=== PATIENT | female | born 1940 | race Caucasian/White ===

== ENCOUNTER 2018-04-03 07:52 | Day surgery (SDC) | payer MEDICARE, OTHER, SELFPAY ==
[2018-04-03] MEDS: PROPARACAINE 0.5% OPHTH SOL 2 DROPS EYE-OP (08:59)
[2018-04-03 09:03] VITALS: BP 171/67; PULSE 55; RESP 15; TEMP 36; O2SAT 99; BMI 22.4
[2018-04-03] MEDS: CATARACT EYE COMPOUND (10 DROPS/SYRINGE) 3 DROPS EYE-OP (09:14)
[2018-04-03 09:19] VITALS: BMI 22.4
--- NOTE | 2018-04-03 09:42 | P.OP.PRE_ITS ---
Pre-operative Note Interval Note Changes: No
--- NOTE | 2018-04-03 09:42 | PM.PREOP ---
Pre-operative Note Interval Note Changes: No
--- NOTE | 2018-04-03 09:44 | P.OP_ITS ---
Operative Date/Time/Diagnoses Pre-op diagnosis: Nuclear cataract right eye Post-op diagnosis: same Procedure & Clinicians Procedure: Cataract Surgery Same procedure as scheduled: Yes Surgeon: Romulo Saucedo Anesthesia Type: MAC +/- and Sedation Operative Notes Procedure in detail: Patient brought to the operating suite. Tetracaine drops placed in the right eye. Patient was prepped and draped in sterile manner. Wire lid speculum was placed in the eye. Betadine drops were placed on the eye. This was irrigated. Lidocaine jelly was placed on the eye. A paracentesis port was created with a side-port blade. 0.1 mL 1% preservative free lidocaine was injected into the anterior chamber. The anterior chamber was deepened with viscoelastic. 2.6 mm keratome was used to create a temporal clear corneal incision. Cystotome and Utrata forceps were used to create continuous tear capsulorrhexis. Balanced salt solution was used to hydro dissect the nucleus. The phacoemulsification handpiece was inserted and the nucleus was removed using the stop and chop technique. The irrigation aspiration handpiece was inserted and the remaining cortex was removed. Anterior chamber was deepened with viscoelastic. An Escobar ZCB00 intraocular lens with a power of 22.0 was injected into the capsular bag. Irrigation aspiration handpiece was inserted and the remaining viscoelastic was removed. Incision was hydrated with balanced salt solution and found to be leak free with pressure with Weck- Rhona sponges. 0.1 mL Vigamox injected anterior chamber. 0.3 mL Kenalog 10 mg was injected subconjunctivally. Lid speculum was removed. The patient left the operating room in excellent condition. Complications: none Condition: stable Disposition: same day surgery
[2018-04-03] MEDS: PHENYLEPHRINE/LIDOCAINE VIAL (OR) 0.2 ML EYE-OP (10:02)
[2018-04-03] MEDS: LIDOCAINE JELLY 2% 5 ML 1 APPLIC TOP (10:03)
[2018-04-03] MEDS: CHONDROIDTIN/SOD HYALURONATE 1.05 ML SYRINGE INTRAOCULA (10:03)
[2018-04-03] MEDS: TRIAMCINOLONE 50 MG/5 ML VIAL INJ (10:03)
[2018-04-03] MEDS: MOXIFLOXACIN OPHTH DROPS 3 ML BOTTLE 2 DROPS INJ (10:03)
[2018-04-03] MEDS: BALANCED SALT IRRIG SOLN NO.2 500 ML, EPINEPHrine 1 MG IRR (10:04)
[2018-04-03] MEDS: TETRACAINE 0.5% OPHTH DROPS 15 ML 2 DROPS EYE-RIGHT (10:04)
[2018-04-03 10:14] VITALS: BP 144/56; PULSE 56; RESP 15; TEMP 36.3; O2SAT 96
== END 2018-04-03 10:29 | disposition home or self-care (01) ==
LOC: OR 07:54
PROVIDERS: PCP Physician Assistant; Visit Provider Ophthalmology
DX: H25.11 Age-related nuclear cataract, right eye (principal); I10 Essential (primary) hypertension; K50.90 Crohn's disease, unspecified, without complications; N19 Unspecified kidney failure
CPT/HCPCS: J0171; J2250; J3010; J3301

== ENCOUNTER 2018-04-17 10:22 | Day surgery (SDC) | payer MEDICARE, OTHER, SELFPAY ==
[2018-04-17 10:39] VITALS: BP 152/72; PULSE 61; RESP 16; TEMP 36.4; O2SAT 100; BMI 23.0
[2018-04-17] MEDS: PROPARACAINE 0.5% OPHTH SOL 2 DROPS EYE-OP (10:52)
[2018-04-17] MEDS: CATARACT EYE COMPOUND (10 DROPS/SYRINGE) 3 DROPS EYE-OP (10:52)
--- NOTE | 2018-04-17 11:42 | PM.PREOP ---
Pre-operative Note Interval Note Changes: No
--- NOTE | 2018-04-17 11:43 | P.OP.PRE_ITS ---
Pre-operative Note Interval Note Changes: No
--- NOTE | 2018-04-17 11:43 | P.OP_ITS ---
Operative Date/Time/Diagnoses Pre-op diagnosis: Nuclear Cataract Left eye Post-op diagnosis: same Procedure & Clinicians Surgeon: Romulo Saucedo Anesthesia Type: MAC +/- and Sedation Operative Notes Procedure in detail: Patient brought to the operating suite. Tetracaine drops placed in the left eye. Patient was prepped and draped in sterile manner. Wire lid speculum was placed in the eye. Betadine drops were placed on the eye. This was irrigated. Lidocaine jelly was placed on the eye. A paracentesis port was created with a side-port blade. 0.1 mL 1% preservative free lidocaine was injected into the anterior chamber. The anterior chamber was deepened with viscoelastic. 2.6 mm keratome was used to create a temporal clear corneal incision. Cystotome and Utrata forceps were used to create continuous tear capsulorrhexis. Balanced salt solution was used to hydro dissect the nucleus. The phacoemulsification handpiece was inserted and the nucleus was removed using the stop and chop technique. The irrigation aspiration handpiece was inserted and the remaining cortex was removed. Anterior chamber was deepened with viscoelastic. An Escobar ZCB00 intraocular lens with a power of 22.0 was injected into the capsular bag. Irrigation aspiration handpiece was inserted and the remaining viscoelastic was removed. Incision was hydrated with balanced salt solution and found to be leak free with pressure with Weck- Rhona sponges. 0.1 mL Vigamox injected anterior chamber. 0.3 mL Kenalog 10 mg was injected subconjunctivally. Lid speculum was removed. The patient left the operating room in excellent condition. Complications: none Condition: stable Disposition: same day surgery
--- NOTE | 2018-04-17 11:54 | SUR.OPER ---
Supine on eye stretcher, head on extension cradle secured with tape. Arms tucked at sides with blanket. Pillow under knees.
[2018-04-17] MEDS: CHONDROIDTIN/SOD HYALURONATE 1.05 ML SYRINGE INTRAOCULA (11:55)
[2018-04-17] MEDS: PHENYLEPHRINE/LIDOCAINE VIAL (OR) 0.2 ML EYE-OP (11:56)
[2018-04-17] MEDS: MOXIFLOXACIN OPHTH DROPS 3 ML BOTTLE 2 DROPS INJ (11:56)
[2018-04-17] MEDS: LIDOCAINE JELLY 2% 5 ML 1 APPLIC TOP (11:56)
[2018-04-17] MEDS: BALANCED SALT IRRIG SOLN NO.2 500 ML, EPINEPHrine 1 MG IRR (11:57)
[2018-04-17] MEDS: TETRACAINE 0.5% OPHTH DROPS 15 ML 2 DROPS EYE-LEFT (11:57)
[2018-04-17] MEDS: TRIAMCINOLONE 50 MG/5 ML VIAL INJ (11:57)
[2018-04-17 12:10] VITALS: BP 119/59; PULSE 52; RESP 16; TEMP 36.2; O2SAT 98
[2018-04-17 12:23] VITALS: BP 127/60; PULSE 53; RESP 16; TEMP 36.7; O2SAT 99
== END 2018-04-17 12:25 | disposition home or self-care (01) ==
PROVIDERS: PCP Physician Assistant; Visit Provider Ophthalmology
PROC: (CPT 66984; principal; 2018-04-17 12:45)
DX: H25.12 Age-related nuclear cataract, left eye (principal); I10 Essential (primary) hypertension; N19 Unspecified kidney failure
CPT/HCPCS: 66984; J0171; J2250; J3010; J3301

== ENCOUNTER 2018-09-02 18:55 | Emergency (ER) | payer MEDICARE, OTHER, SELFPAY ==
[2018-09-02] VITALS (13 sets, daily range): BP systolic 96–207; BP diastolic 37–97; PULSE 90–131; RESP 16–25; TEMP 38.5; O2SAT 87–100; BMI 23.0
--- NOTE | 2018-09-02 19:30 | DI.RAD.S_ITS ---
PROCEDURE: XR CHEST 1V INDICATIONS: hypoxic short of breath TECHNIQUE: One view of the chest was acquired. COMPARISON: None. FINDINGS: Surgical changes and devices: None. Lungs and pleura: Lungs are clear. No pleural effusions or pneumothorax. Mediastinum: Mediastinal contours appear normal. Heart size is normal. Bones and chest wall: No suspicious bony lesions. Overlying soft tissues appear unremarkable. IMPRESSION: No acute process. Dictated by: Ramiro Porter M.D. on 09/02/2018 at 19:59 Approved by: Ramiro Porter M.D. on 09/02/2018 at 20:00
[2018-09-02] MEDS: ALBUTEROL 2.5 MG/3 ML NEB (ADULT) INH ×4 (19:53→22:50)
--- NOTE | 2018-09-02 19:57 | ED.URI ---
HPI - URI/Sore Throat General Chief Complaint: Upper Respiratory Symptoms Stated Complaint: cold,cough,trouble breathing today Time Seen by Provider: 09/02/18 19:30 Source: patient and family Mode of arrival: wheelchair History of Present Illness HPI Narrative: Patient is an 78-year-old female presenting with obvious respiratory distress. She says she has been feeling ill the the last 6 days. She has had body aches and chills. She has a productive cough but does not get anything up. She is short of breath with minimal exertion. On room air apparently oxygenating 84% with good waveform. No history of COPD. MD Complaint: fever, cough and sore throat Onset (ago): day(s) (6) Duration: constant Related Data Home Medications Medication Instructions Recorded Confirmed Poison Lyndsay (#RHUS TOX) gtt SUBLINGUAL PRN #0 09/28/12 05/24/18 Restore 5 ml PO QAC 01/04/18 05/24/18 [BUILD BONE] 4 cap PO QDAY #0 01/04/18 05/24/18 cholecalciferol (vitamin D3) 2,000 2,000 unit PO DAILY 05/24/18 05/24/18 unit capsule ketorolac 0.5 % eye drops 1 drop EYE-RIGHT QID ml 05/24/18 05/24/18 prednisolone acetate 1 % eye 1 drop EYE-RIGHT QID ml 05/24/18 05/24/18 drops,suspension Previous Rx's Medication Instructions Recorded losartan 50 mg tablet 50 mg PO QDAY #90 tab 05/14/18 atenolol 25 mg tablet 25 mg PO BID #180 tab 06/25/18 felodipine 10 mg PO QDAY #90 tab 07/02/18 Allergies Allergy/AdvReac Type Severity Reaction Status Date / Time Sulfa (Sulfonamide Allergy Mild RASH Verified 09/02/18 19:18 Antibiotics) terazosin AdvReac Intermediate DIZZY, Verified 09/02/18 19:18 PALPITATIONS RONALD Inhibitors AdvReac Mild COUGH Verified 09/02/18 19:18 amlodipine AdvReac Mild EDEMA Verified 09/02/18 19:18 hydrochlorothiazide AdvReac Mild N/V/D, Verified 09/02/18 19:18 PHOTO DERM NSAIDS (Non-Steroidal AdvReac Mild N/V Verified 09/02/18 19:18 Anti-Inflamma risedronate sodium AdvReac Mild EDEMA/TACHY Verified 09/02/18 19:18 Review of Systems Review of Systems ROS Unobtainable: All systems reviewed & are unremarkable except as noted in HPI and below Constitutional Reports body ache(s), Reports chills and Reports fever(s) Cardiovascular Denies chest pain, Reports dyspnea and Reports dyspnea on exertion Respiratory Reports chest congestion, Reports pain with cough, Reports dyspnea and Reports dyspnea on exertion Gastrointestinal Gastrointestinal: Denies abdominal pain, Denies change in bowel habits, Denies diarrhea, Denies nausea and Denies vomiting Musculoskeletal Denies back pain, Denies muscle weakness, Denies numbness and Denies tingling Integumentary/Breasts Denies pruritus, Denies erythema, Denies rash and Denies wounds Neurologic Denies numbness and Denies tingling PFSH Medical History Crohns disease (Acute) Fibromyalgia (Acute) Hypertension (Acute) Social History household members: spouse Smoking Status: Never smoker second hand exposure: No alcohol intake: current (small amount of red wine, once and awhile) substance use type: does not use Social History household members: spouse Smoking Status: Never smoker second hand exposure: No alcohol intake: current (small amount of red wine, once and awhile) substance use type: does not use Exam Initial Vital Signs Initial Vital Signs: Vital Signs Temperature 101.3 F H 09/02/18 19:19 Pulse Rate 90 09/02/18 19:19 Blood Pressure 207/82 H 09/02/18 19:19 Pulse Oximetry 87 L 09/02/18 19:19 Gen.: Alert frail elderly female in obvious respiratory distress HEENT: Head is atraumatic, EOMI Neck: No JVD, supple Lungs: Coarse breath sounds throughout audible rales, tachypneic, unable to speak in full sentences Cardiac: Tachycardic regular no murmur Abdomen: Soft nontender nondistended Extremities: Moving all extremity's, peripheral pulses intact is no pedal edema Neurologic: A&O x3 no gross deficits Procedures Intubation Time out performed: Yes sedative: Etomidate Mg Given: 10 paralytic: Succinylcholine Mg Given: 75 Laryngoscope: other (glide scope) ET Tube Size: 7.5 ET Tube Uncuffed: Yes Tube Secured Depth (cm): 23 Tube Secured Location: teeth Tube Placement Confirmation: Visualized tube passing through cords, Equal breath sounds bilaterally, No breath sounds over epigastrium, Confirmation by capnometry and Chest Xray Patient Tolerated Procedure: Well Intubation Complications: none Course Orders Ordered: ED Orders 09/02/18 19:30 XR chest 1V Stat EKG-12 Lead Stat 09/02/18 19:45 Influenza A and B by PCR Rapid Stat 09/02/18 19:53 B Type Natriuretic Peptide Stat Complete Blood Count AUTO DIFF Stat Comprehensive Metabolic Panel Stat Lactate (Lactic Acid) Stat Procalcitonin Stat Troponin & CK Cardiac Panel Stat 09/02/18 20:55 Blood Culture Stat 09/02/18 21:43 XR chest 1V Stat 09/02/18 21:56 Arterial Blood Gas Stat 09/02/18 22:30 Sputum Culture Stat 09/02/18 22:37 MRSA PCR Stat Discontinued Medications Acetaminophen (Tylenol) 975 mg PO NOW ONE Stop: 09/02/18 19:31 Last Admin: 09/02/18 20:30 Dose: 975 mg Albuterol (Ventolin) 2.5 mg INH NOW PRN PRN Reason: Shortness Of Breath Or Wheezing Last Admin: 09/02/18 22:50 Dose: 2.5 mg Admin: 09/02/18 19:57 Dose: 2.5 mg Admin: 09/02/18 19:56 Dose: 2.5 mg Admin: 09/02/18 19:53 Dose: 2.5 mg Hydromorphone HCl (Dilaudid) 0.5 mg IV NOW ONE Stop: 09/02/18 22:03 Last Admin: 09/02/18 22:08 Dose: 0.5 mg Hydromorphone HCl (Dilaudid) 0.5 mg IV NOW ONE Stop: 09/02/18 23:45 Sodium Chloride (Normal Saline 0.9%) 1,551.3 mls @ 517.1 mls/hr 30 ml/kg infuse over 3 hr (1551.3 ml) IV NOW ONE Stop: 09/02/18 22:29 Last Infusion: 09/02/18 23:10 Dose: 1,000 mls/hr Admin: 09/02/18 20:32 Dose: 517.1 mls/hr Ceftriaxone Sodium/Dextrose (Rocephin) 1 gm in 50 mls @ 100 mls/hr IV NOW ONE Stop: 09/02/18 22:31 Azithromycin 500 mg/ Dextrose 250 mls @ 250 mls/hr IV NOW ONE Stop: 09/02/18 22:03 Piperacillin/Tazobactam/Dextrose (Zosyn) 3.375 gm in 50 mls @ 100 mls/hr IV NOW ONE Stop: 09/02/18 22:47 Last Infusion: 09/03/18 00:03 Dose: 100 mls/hr Admin: 09/02/18 23:08 Dose: 100 mls/hr Propofol (Propofol) 1,000 mg in 100 mls @ 6.205 mls/hr IV TITRATE DARIA; Protocol Last Titration: 09/02/18 23:33 Dose: 0 mcg/kg/min, 0 mls/hr Titration: 09/02/18 23:01 Dose: 32.23 mcg/kg/min, 10 mls/hr Titration: 09/02/18 22:20 Dose: 0 mcg/kg/min, 0 mls/hr Titration: 09/02/18 21:45 Dose: 64.46 mcg/kg/min, 20 mls/hr Admin: 09/02/18 21:45 Dose: 20 mcg/kg/min, 6.205 mls/hr Lorazepam (Ativan) 2 mg IV NOW ONE Stop: 09/02/18 22:59 Last Admin: 09/02/18 22:00 Dose: 2 mg Oseltamivir Phosphate (Tamiflu) 75 mg PO NOW ONE Stop: 09/02/18 20:23 Last Admin: 09/02/18 20:30 Dose: 75 mg Propofol (Diprivan) 40 mg IV NOW ONE Stop: 09/02/18 22:59 Last Admin: 09/02/18 21:50 Dose: 40 mg Reevaluation(s) Reevaluation #1: Patient re-evaluated after bronchodilators. She is still in moderate respiratory distress but oxygen levels have increased with 2 L of O2 she appears more comfortable Reevaluation #2: Patient ambulated do a bedside commode as afterwards she quickly decompensated. Becoming very tachypneic hypoxic and restless. At that time we were trying to get bedside ABG is however due to patient's decompensation we are unable to. Attempted to try patient on high-flow nasal cannula. Which did improve her oxygen however she continued to be tachypneic and restless. I discussed with patient need for intubation. She was agreeable family at bedside also agreeable and understood. Patient emergently intubated. Vital Signs - 8 hr 09/02/18 19:19 09/02/18 19:54 09/02/18 21:03 Temperature 101.3 F H Pulse Rate 90 95 H 120 H Respiratory Rate 25 H 22 Blood Pressure 207/82 H Blood Pressure [Left Arm] Blood Pressure [Right Arm] Pulse Oximetry 87 L 97 88 L 09/02/18 21:21 09/02/18 21:37 09/02/18 21:45 Temperature Pulse Rate 122 H 131 H 113 H Respiratory Rate 24 24 16 Blood Pressure Blood Pressure [Left Arm] 180/88 H 187/97 H 186/85 H Blood Pressure [Right Arm] Pulse Oximetry 95 96 100 09/02/18 22:10 09/02/18 22:30 09/02/18 23:00 Temperature Pulse Rate 102 H 94 H 90 Respiratory Rate 16 16 Blood Pressure Blood Pressure [Left Arm] 96/37 L 155/82 H Blood Pressure [Right Arm] 100/47 L Pulse Oximetry 98 09/02/18 23:05 09/02/18 23:10 09/02/18 23:40 Temperature Pulse Rate 91 H 92 H 87 Respiratory Rate 16 16 Blood Pressure Blood Pressure [Left Arm] 125/42 L 114/41 L 119/43 L Blood Pressure [Right Arm] Pulse Oximetry 99 MDM - URI/Sore Throat Lab Data Attestation: I reviewed the patient's lab results. Result diagrams: 09/02/18 19:53 09/02/18 19:53 Lab Results 09/02/18 09/02/18 09/02/18 Range/Units 19:45 19:53 19:53 WBC 4.9 (4.5-11.0) X10^3/uL RBC 4.10 (4.0-5.2) X10^6/uL Hgb 12.5 (12.0-16.0) g/dL Hct 37.1 (36-46) % MCV 90.5 (80-100) fL MCH 30.6 (26-34) PG MCHC 33.8 (30-36) % RDW 13.0 (11.6-14.8) % Plt Count 169 (150-400) X10^3/uL Neut % (Auto) 80.4 H (50-75) % Lymph % (Auto) 12.8 L (25-40) % [place] % (Auto) 6.4 (3-14) % Eos % (Auto) 0.1 L (2-4) % Baso % (Auto) 0.3 (0-2) % Neut # (Auto) 3900 (6743-1516) /uL Lymph # (Auto) 600 L (6704-3436) /uL [place] # (Auto) 300 (0-900) /uL Eos # (Auto) 0 (0-450) /uL Baso # (Auto) 0 (0-100) /uL ABG pH (7.35-7.45) ABG pCO2 (35-45) mmHg ABG pO2 (80-100) mmHg ABG HCO3 (22-26) mmol/L ABG Total CO2 (21-31) mmol/L ABG O2 Saturation (95-100) % ABG Base Excess (-2-2) mmol/L FiO2 Sodium 131 L (137-145) mmol/L Potassium 3.9 (3.4-5.1) mmol/L Chloride 93 L (98-107) mmol/L Carbon Dioxide 25 (22-32) mmol/L BUN 15 (7-17) mg/dL Creatinine 0.80 (0.52-1.04) mg/dL Estimated GFR > 60.0 (>60) mL/min BUN/Creatinine Ratio 18.8 (6-22) Glucose 120 H (80-110) mg/dL Lactate (0.7-2.1) mmol/L Calcium 9.2 (8.4-10.2) mg/dL Total Bilirubin 0.5 (0.2-1.3) mg/dL AST 54 H (14-36) IU/L ALT 44 (9-52) IU/L Alkaline Phosphatase 96 (38-126) U/L Total Creatine Kinase 115 (30-135) U/L CK-MB (CK-2) 1.98 (<2.37) ng/mL CK-MB (CK-2) Rel Index 1.7 (1.5-5.0) % Troponin I 0.018 (0.01-0.034) ng/mL B-Natriuretic Peptide 147 H (<100) Total Protein 7.9 (6.3-8.2) g/dL Albumin 4.5 (3.5-5.0) g/dL Globulin 3.4 (1.7-4.1) g/dL Albumin/Globulin Ratio 1.3 (1.0-2.8) Procalcitonin (<0.5) ng/mL Nasal Screen MRSA (PCR) (Negative) Influenza A & B (PCR) Positive, type a A (Negative) 09/02/18 09/02/18 09/02/18 Range/Units 19:53 19:53 21:56 WBC (4.5-11.0) X10^3/uL RBC (4.0-5.2) X10^6/uL Hgb (12.0-16.0) g/dL Hct (36-46) % MCV (80-100) fL MCH (26-34) PG MCHC (30-36) % RDW (11.6-14.8) % Plt Count (150-400) X10^3/uL Neut % (Auto) (50-75) % Lymph % (Auto) (25-40) % [place] % (Auto) (3-14) % Eos % (Auto) (2-4) % Baso % (Auto) (0-2) % Neut # (Auto) (0531-4098) /uL Lymph # (Auto) (6942-8803) /uL [place] # (Auto) (0-900) /uL Eos # (Auto) (0-450) /uL Baso # (Auto) (0-100) /uL ABG pH 7.26 L* (7.35-7.45) ABG pCO2 51.9 H (35-45) mmHg ABG pO2 99 (80-100) mmHg ABG HCO3 23 (22-26) mmol/L ABG Total CO2 25 (21-31) mmol/L ABG O2 Saturation 96 (95-100) % ABG Base Excess -4.0 L (-2-2) mmol/L FiO2 0.50 Sodium (137-145) mmol/L Potassium (3.4-5.1) mmol/L Chloride (98-107) mmol/L Carbon Dioxide (22-32) mmol/L BUN (7-17) mg/dL Creatinine (0.52-1.04) mg/dL Estimated GFR (>60) mL/min BUN/Creatinine Ratio (6-22) Glucose (80-110) mg/dL Lactate 1.0 (0.7-2.1) mmol/L Calcium (8.4-10.2) mg/dL Total Bilirubin (0.2-1.3) mg/dL AST (14-36) IU/L ALT (9-52) IU/L Alkaline Phosphatase (38-126) U/L Total Creatine Kinase (30-135) U/L CK-MB (CK-2) (<2.37) ng/mL CK-MB (CK-2) Rel Index (1.5-5.0) % Troponin I (0.01-0.034) ng/mL B-Natriuretic Peptide (<100) Total Protein (6.3-8.2) g/dL Albumin (3.5-5.0) g/dL Globulin (1.7-4.1) g/dL Albumin/Globulin Ratio (1.0-2.8) Procalcitonin < 0.05 (<0.5) ng/mL Nasal Screen MRSA (PCR) (Negative) Influenza A & B (PCR) (Negative) 09/02/18 Range/Units 22:37 WBC (4.5-11.0) X10^3/uL RBC (4.0-5.2) X10^6/uL Hgb (12.0-16.0) g/dL Hct (36-46) % MCV (80-100) fL MCH (26-34) PG MCHC (30-36) % RDW (11.6-14.8) % Plt Count (150-400) X10^3/uL Neut % (Auto) (50-75) % Lymph % (Auto) (25-40) % [place] % (Auto) (3-14) % Eos % (Auto) (2-4) % Baso % (Auto) (0-2) % Neut # (Auto) (8718-1445) /uL Lymph # (Auto) (0509-0869) /uL [place] # (Auto) (0-900) /uL Eos # (Auto) (0-450) /uL Baso # (Auto) (0-100) /uL ABG pH (7.35-7.45) ABG pCO2 (35-45) mmHg ABG pO2 (80-100) mmHg ABG HCO3 (22-26) mmol/L ABG Total CO2 (21-31) mmol/L ABG O2 Saturation (95-100) % ABG Base Excess (-2-2) mmol/L FiO2 Sodium (137-145) mmol/L Potassium (3.4-5.1) mmol/L Chloride (98-107) mmol/L Carbon Dioxide (22-32) mmol/L BUN (7-17) mg/dL Creatinine (0.52-1.04) mg/dL Estimated GFR (>60) mL/min BUN/Creatinine Ratio (6-22) Glucose (80-110) mg/dL Lactate (0.7-2.1) mmol/L Calcium (8.4-10.2) mg/dL Total Bilirubin (0.2-1.3) mg/dL AST (14-36) IU/L ALT (9-52) IU/L Alkaline Phosphatase (38-126) U/L Total Creatine Kinase (30-135) U/L CK-MB (CK-2) (<2.37) ng/mL CK-MB (CK-2) Rel Index (1.5-5.0) % Troponin I (0.01-0.034) ng/mL B-Natriuretic Peptide (<100) Total Protein (6.3-8.2) g/dL Albumin (3.5-5.0) g/dL Globulin (1.7-4.1) g/dL Albumin/Globulin Ratio (1.0-2.8) Procalcitonin (<0.5) ng/mL Nasal Screen MRSA (PCR) Negative for mrsa (Negative) Influenza A & B (PCR) (Negative) Urine Dip Bedside Urine Glucose Negative Bedside Urine Bilirubin - Negative Bedside Urine Ketone - Negative Urine Specific [place] 1.020 Bedside Urine Occult Blood +/- Bedside Urine pH 6.0 Bedside Urine Protein ++ 100 Bedside Urine Urobilinogen - Negative Bedside Urine Nitrite - Negative Bedside Urine Leukocytes - Negative Esterase Imaging Data Chest x-ray: Radiologist's impression: PROCEDURE: XR CHEST 1V INDICATIONS: hypoxic short of breath TECHNIQUE: One view of the chest was acquired. COMPARISON: None. FINDINGS: Surgical changes and devices: None. Lungs and pleura: Lungs are clear. No pleural effusions or pneumothorax. Mediastinum: Mediastinal contours appear normal. Heart size is normal. Bones and chest wall: No suspicious bony lesions. Overlying soft tissues appear unremarkable. IMPRESSION: No acute process. Dictated by: Ramiro Porter M.D. on 09/02/2018 at 19:59 chest xr #2: Radiologist's impression: PROCEDURE: XR CHEST 1V INDICATIONS: intubation TECHNIQUE: One view of the chest was acquired. COMPARISON: [facility], CR, XR CHEST 1V, 09/02/2018, 19:48. FINDINGS: Surgical changes and devices: ETT is present, tip of which is 35 mm above the lucrecia. Lungs and pleura: Mild patchy right basilar opacity. No pleural effusions or pneumothorax. Mediastinum: Mediastinal contours appear normal. Heart size is normal. Bones and chest wall: No suspicious bony lesions. Overlying soft tissues appear unremarkable. IMPRESSION: Right basilar pneumonia. Follow up plain films of the chest are recommended to ensure resolution, and to exclude underlying or central malignancy. Dictated by: Ramiro Porter M.D. on 09/02/2018 at 21:59 ECG Data Attestation: I personally reviewed and interpreted this ECG as follows: Interpretation: Sinus rhythm rate [address] depression lead [address] elevation MDM Narrative Medical decision making narrative: Dr. Ngueyn initially accepted patient. Patient decompensated requiring intubation. [facility] no longer has ICU beds. Patient will be transferred to [facility]. Dr. Garcia accepts. I spoke with the audiovisual lead technician who requested and nasal MRSA swab and vancomycin if needed. Also recommended Zosyn and azithromycin MRSA screen will be done at 11:45pm Transport here now. --11:25pm 12:10am MRSA screen is negative called and updated audiovisual lead technician Dr. Garcia. Critical Care Time Critical Care Time: Yes Total Critical Care Time: 60 Attestation: The high probability of a clinically significant, sudden or life threatening deterioration of the [cardiovascular] system(s) required my full and direct attention, intervention and personal management. The aggregate critical care time was [45] minutes. This time is in addition to time spent performing reported procedures but includes the following: [x] Data Review and interpretation [x] Patient assessment and monitoring of vital signs [x] Documentation [x] Medication orders and management Discharge Plan Departure Patient Disposition: [facility] Clinical Impression: Influenza A, Acute and chronic respiratory failure with hypoxia Discharge Date/Time: 09/03/18 00:10 Interventions: ED Discharge Assessment Last Done: 09/03/18 00:09 Prescriptions: No Action Restore 5 ml PO QAC RF: 0 [BUILD BONE] 4 cap PO QDAY Qty: 0 RF: 0 cholecalciferol (vitamin D3) 2,000 unit capsule 2,000 unit PO DAILY RF: 0 prednisolone acetate 1 % drops,suspension 1 drop EYE-RIGHT QID RF: 0 ketorolac 0.5 % drops 1 drop EYE-RIGHT QID RF: 0 Poison Lyndsay (#RHUS TOX) Sublingual PRN Qty: 0 RF: 0 losartan 50 mg tablet 50 mg PO QDAY Qty: 90 RF: 1 atenolol 25 mg tablet 25 mg PO BID Qty: 180 RF: 3 felodipine 10 mg tablet extended release 24 hr 10 mg PO QDAY Qty: 90 RF: 3 Referrals: Raquel Torres PA-C [Primary Care Provider] -
[2018-09-02 20:11] LABS: Add Manual Diff / Slide Review NO; Basophils Absolute Auto 0 /uL (0-100); Basophils Percent Auto 0.3 % (0-2); Eosinophils Absolute Auto 0 /uL (0-450); Eosinophils Percent Auto 0.1 % (2-4); Hematocrit 37.1 % (36-46); Hemoglobin 12.5 g/dL (12.0-16.0); Lymphocytes Absolute Auto 600 /uL (1100-4500); Lymphocytes Percent Auto 12.8 % (25-40); Mean Corpuscular HGB Conc 33.8 % (30-36); Mean Corpuscular Hemoglobin 30.6 PG (26-34); Mean Corpuscular Volume 90.5 fL (80-100); Monocytes Absolute Auto 300 /uL (0-900); Monocytes Percent Auto 6.4 % (3-14); Neutrophils Absolute Auto 3900 /uL (1500-7000); Neutrophils Percent Auto 80.4 % (50-75); Platelet Count 169 X10^3/uL (150-400); White Blood Cell Count 4.9 X10^3/uL (4.5-11.0)
[2018-09-02 20:17] LABS: Alanine Aminotransferase 44 IU/L (9-52); Albumin 4.5 g/dL (3.5-5.0); Albumin Globulin Ratio 1.3 (1.0-2.8); Alkaline Phosphatase 96 U/L (38-126); Aspartate Aminotransferase 54 IU/L (14-36); BUN Creatinine Ratio 18.8 (6-22); Bilirubin Total 0.5 mg/dL (0.2-1.3); Blood Urea Nitrogen 15 mg/dL (7-17); Calcium 9.2 mg/dL (8.4-10.2); Carbon Dioxide 25 mmol/L (22-32); Chloride 93 mmol/L (98-107); Creatine Kinase 115 U/L (30-135); Estimated Glomerular Filt Rate > 60.0 mL/min (>60); Globulin 3.4 g/dL (1.7-4.1); Glucose 120 mg/dL (80-110); HEMOLYSIS < 15 (0-50); Potassium 3.9 mmol/L (3.4-5.1); Sodium 131 mmol/L (137-145); Total Protein 7.9 g/dL (6.3-8.2)
[2018-09-02 20:24] LABS: B Type Natriuretic Peptide 147 (<100)
[2018-09-02 20:28] LABS: Troponin I 0.018 ng/mL (0.01-0.034)
[2018-09-02] MEDS: OSELTAMIVIR 75 MG CAPSULE PO (20:30)
[2018-09-02] MEDS: ACETAMINOPHEN 325 MG TABLET 975 MG PO (20:30)
[2018-09-02 20:32] LABS: CKMB % Relative Index 1.7 % (1.5-5.0); Creatine Kinase MB 1.98 ng/mL (<2.37)
[2018-09-02] MEDS: SODIUM CHLORIDE 0.9% 517.1 ML IV (20:32)
[2018-09-02 20:40] LABS: Procalcitonin < 0.05 ng/mL (<0.5)
--- NOTE | 2018-09-02 21:43 | DI.RAD.S_ITS ---
PROCEDURE: XR CHEST 1V INDICATIONS: intubation TECHNIQUE: One view of the chest was acquired. COMPARISON: [facility], CR, XR CHEST 1V, 09/02/2018, 19:48. FINDINGS: Surgical changes and devices: ETT is present, tip of which is 35 mm above the lucrecia. Lungs and pleura: Mild patchy right basilar opacity. No pleural effusions or pneumothorax. Mediastinum: Mediastinal contours appear normal. Heart size is normal. Bones and chest wall: No suspicious bony lesions. Overlying soft tissues appear unremarkable. IMPRESSION: Right basilar pneumonia. Follow up plain films of the chest are recommended to ensure resolution, and to exclude underlying or central malignancy. Dictated by: Ramiro Porter M.D. on 09/02/2018 at 21:59 Approved by: Ramiro Porter M.D. on 09/02/2018 at 22:00
[2018-09-02] MEDS: PROPOFOL 1,000 MG/100 ML VIAL 6.205 MG IV (21:45)
[2018-09-02] MEDS: PROPOFOL 200 MG/20 ML VIAL 40 MG IV (21:50)
[2018-09-02] MEDS: LORazepam 2 MG/ML SYRINGE IV (22:00)
[2018-09-02] MEDS: HYDROMORPHONE 1 MG INJ 0.5 MG IV (22:08)
--- NOTE | 2018-09-02 22:24 | PC.NURSE ---
2125 patient decompensation. Patient using accessory muscles, reports feeling very tired. Intubation discussed with patient and family. patient agreeable to intubation.
[2018-09-02 22:30] LABS: HCO3 ABG 23 mmol/L (22-26); Oxygen Saturation ABG 96 % (95-100); PCO2 ABG 51.9 mmHg (35-45); PO2 ABG 99 mmHg (80-100); TCO2 ABG 25 mmol/L (21-31); pH ABG 7.26 (7.35-7.45)
--- NOTE | 2018-09-02 22:43 | PC.NURSE ---
2136 patient medicated with 10mg Etomidate IV, followed by 75mg Succinycholine for intubation. Patient preoxygenated by RT. Provider able to visualize cords, intubation with 7.5 ET tube with no difficulty. Patient tolerated well. Started on Propofol Drip post intubation 2144 at 20ml/hr, 40mg IV bolus by provider Deborah.
[2018-09-02] MEDS: PIPERACILLIN-TAZO 3.375 GM/50 ML FROZ.PIGGY IV (23:08)
== END 2018-09-03 00:10 | disposition short-term general hospital (02) ==
PROVIDERS: Emergency Provider Emergency Medicine; PCP Physician Assistant
DX: J96.21 Acute and chronic respiratory failure with hypoxia (principal)
CPT/HCPCS: 31500; 36415; 36591; 36600; 71045; 80053; 81003; 82550; 82553; 82805; 83605; 83880; 84145; 84484; 85025; 87040; 87070; 87077; 87205; 87400; 87797; 93005; 94640; 94770; 94799; 96361; 96365; 96375; 99285; 99291; 99292; J1170; J2060; J2543; J2704; J7613

== ENCOUNTER → 2019-07-09 13:12 | Outpatient (CLI) | payer MEDICARE, OTHER, SELFPAY ==
[2018-09-11 14:04] VITALS: PULSE 94; RESP 16; O2SAT 96
[2019-07-09 14:02] LABS: Add Manual Diff / Slide Review NO; Basophils Absolute Auto 100 /uL (0-100); Basophils Percent Auto 0.9 % (0-2); Eosinophils Absolute Auto 100 /uL (0-450); Eosinophils Percent Auto 1.7 % (2-4); Hematocrit 35.2 % (36-46); Hemoglobin 12.2 g/dL (12.0-16.0); Lymphocytes Absolute Auto 2000 /uL (1100-4500); Lymphocytes Percent Auto 26.6 % (25-40); Mean Corpuscular HGB Conc 34.7 % (30-36); Mean Corpuscular Volume 92.2 fL (80-100); Monocytes Absolute Auto 500 /uL (0-900); Neutrophils Absolute Auto 4700 /uL (1500-7000); Neutrophils Percent Auto 63.8 % (50-75); Platelet Count 256 X10^3/uL (150-400); Red Blood Cell Count 3.82 X10^6/uL (4.0-5.2); Red Cell Distribution Width 12.7 % (11.6-14.8); White Blood Cell Count 7.3 X10^3/uL (4.5-11.0)
[2019-07-09 14:45] LABS: Alanine Aminotransferase 19 IU/L (<35); Albumin 4.3 g/dL (3.5-5.0); Albumin Globulin Ratio 1.4 (1.0-2.8); Alkaline Phosphatase 128 U/L (38-126); Aspartate Aminotransferase 30 IU/L (14-36); BUN Creatinine Ratio 26.7 (6-22); Bilirubin Total 0.4 mg/dL (0.2-1.3); Blood Urea Nitrogen 24 mg/dL (7-17); Calcium 9.9 mg/dL (8.4-10.2); Carbon Dioxide 26 mmol/L (22-32); Chloride 100 mmol/L (98-107); Estimated Glomerular Filt Rate > 60.0 mL/min (>60); Glucose 101 mg/dL (80-110); HEMOLYSIS < 15 (0-50); Sodium 135 mmol/L (137-145); Total Protein 7.3 g/dL (6.3-8.2)
[2019-07-09 14:46] LABS: Creatinine Urine Random 39.8 mg/dL
[2019-07-09 14:52] LABS: Microalbumi Creatinin Ratio Ur 17.5 ug/mg CR (<30); Microalbumin Urine Random 0.7 mg/dL (0-1.6)
== END ==
PROVIDERS: PCP Physician Assistant; Visit Provider Physician Assistant
DX: I10 Essential (primary) hypertension (principal); N18.1 Chronic kidney disease, stage 1
CPT/HCPCS: 36415; 80053; 82043; 82570; 85025

== ENCOUNTER 2024-06-12 06:52 | Emergency (ER) | payer MEDICARE, OTHER, SELFPAY ==
[2018-09-11 14:04] VITALS: PULSE 94; RESP 16; O2SAT 96
[2024-06-12] VITALS (45 sets, daily range): BP systolic 177–222; BP diastolic 77–136; PULSE 37–71; RESP 18–36; TEMP 36.9; O2SAT 91–95; BMI 23.2
--- NOTE | 2024-06-12 06:59 | DI.RAD.S_ITS ---
PROCEDURE: XR CHEST 1V INDICATIONS: dyspnea TECHNIQUE: One view of the chest was acquired. COMPARISON: [facility], CR, XR CHEST 1V, 09/02/2018, 21:47. FINDINGS: Surgical changes and devices: None. Lungs and pleura: Ill-defined airspace opacities are noted in right lower lung field. Left lung is clear. Trace right pleural effusion is seen with blunting of right costophrenic angle. No pneumothorax. Mediastinum: Mediastinal contours appear normal. Heart size is enlarged. Bones and chest wall: No suspicious bony lesions. Overlying soft tissues appear unremarkable. IMPRESSION: Suggestion of right lower lobe infiltrate versus atelectasis. Trace right pleural effusion. No pneumothorax. Dictated by: Faheem Shaver M.D. on 06/12/2024 at 7:28 Approved by: Faheem Shaver M.D. on 06/12/2024 at 7:29
--- NOTE | 2024-06-12 07:04 | EKG_ITS ---
[place] [id number] [place] [id number] Test Date: 2024-06-12 Pat Name: Ludmila Medina Department: Room: Gender: Female Counselor Manager: ELEAZAREVELINE : 1940 Requested By: Order Number: [id number] Reading MD: Shaun Downey Measurements Intervals [place] Rate: 40 P: 75 PA: 216 QRS: 55 QRSD: 116 T: 89 QT: 530 QTc: 431 Interpretive Statements Critical Test Result: Low HR Marked sinus bradycardia with 1st degree AV block Possible Left atrial enlargement Left ventricular hypertrophy with QRS widening ( [place] product ) Cannot rule out Septal infarct , age undetermined Electronically Signed On 06-13-2024 8:19:21 PST by Shaun Downey
--- NOTE | 2024-06-12 07:09 | ED_ITS ---
HPI - General Adult General Chief complaint: Shortness of Breath/Dyspnea Stated complaint: shortness of air Time Seen by Provider: 06/12/24 06:52 Source: patient and EMS Mode of arrival: EMS History of Present Illness HPI narrative: 83-year-old woman with a history of hypertension no hospital interactions for the last 4 years he is her primary care physician regularly presents complaining of shortness of breath for the last 4 days with exertional dyspnea for the last 3 days. She noted 4 days ago that her heart rate was low based on blood pressure cuff reading. It has remained low throughout that time frame. She reports no chest pain, palpitations, orthopnea, lower extremity edema. No recent fevers, cough, chills. No nausea, vomiting, diarrhea, abdominal pain. Related Data Home Medications Medication Instructions Recorded Confirmed Poison Lyndsay (#RHUS TOX) gtt sublingual PRN ##0 09/28/12 07/16/19 Restore 5 ml PO QAC 01/04/18 07/16/19 [BUILD BONE] 4 cap PO QDAY ##0 01/04/18 07/16/19 cholecalciferol (vitamin D3) 50 2,000 unit PO DAILY 05/24/18 07/16/19 mcg (2,000 unit) capsule Multivitamin Gummies See Rx Instructions .Route .COMPLEX 09/18/18 07/16/19 omega-3 fatty acids 1,000 mg 1,000 mg PO DAILY 09/18/18 07/16/19 capsule (Fish Oil Concentrate) losartan 50 mg tablet 100 mg PO QDAY 06/12/24 06/12/24 Previous Rx's Medication Instructions Recorded albuterol sulfate 90 mcg/actuation 2 puff inhalation Q6-8H #18 grams 09/18/18 aerosol inhaler felodipine 10 mg tablet,extended 10 mg PO QDAY #90 tabs 07/16/19 release 24 hr atenolol 25 mg tablet 25 mg PO BID #180 tabs 09/25/19 Allergies Allergy/AdvReac Type Severity Reaction Status Date / Time Sulfa (Sulfonamide Allergy Mild RASH Verified 07/16/19 14:21 Antibiotics) hydrocodone AdvReac Intermediate Irritability, Verified 07/16/19 14:21 aggressive behavior terazosin AdvReac Intermediate DIZZY, Verified 07/16/19 14:21 PALPITATIONS RONALD Inhibitors AdvReac Mild COUGH Verified 07/16/19 14:21 amlodipine AdvReac Mild EDEMA Verified 07/16/19 14:21 hydrochlorothiazide AdvReac Mild N/V/D, Verified 07/16/19 14:21 PHOTO DERM NSAIDS (Non-Steroidal AdvReac Mild N/V Verified 07/16/19 14:21 Anti-Inflamma risedronate sodium AdvReac Mild EDEMA/TACHY Verified 07/16/19 14:21 Albuterol inhaler AdvReac Intermediate itchy red Uncoded 07/16/19 14:21 spots on arms and legs Review of Systems Review of Systems Narrative: Pertinent positive and negative findings as per HPI Patient History Medical History (Updated 06/12/24 @ 08:27 by Trinity Wayne MD) Fibromyalgia Hypertension Crohns disease Social History household members: spouse Smoking Status: Never smoker second hand exposure: No alcohol intake: current substance use type: does not use Smoking Status: Never smoker Exam Initial Vital Signs Initial Vital Signs: Vital Signs Pulse Oximetry 92 06/12/24 06:55 General: Healthy appearing, in no acute distress. Able to give a complete and coherent history. Well-nourished well-developed HEENT: Moist mucous membranes, normal sclera with reactive pupils, Neck: No JVD, supple Respiratory: Lungs are clear to auscultation, no wheezing no rales no rhonchi. Full and symmetrical air movement Cardiac: Bradycardic but otherwise Regular rate and rhythm no murmurs no bruits Abdomen: Soft, nontender, good bowel tones, no flank pain Skin: Warm and dry, no rashes Neurologic: Grossly neurologically intact with no obvious asymmetries or abnormalities Extremities: No trauma, well perfused, no lower extremity edema Psych: Cooperative, appropriate insight and affect Course Orders Ordered: Discontinued Medications Furosemide (Furosemide 40 Mg/4 Ml Vial) 40 mg IV NOW ONE Stop: 06/12/24 08:22 Last Admin: 06/12/24 08:26 Dose: 40 mg Documented By: NÉSTOR Losartan Potassium (Losartan 50 Mg Tablet) 100 mg PO NOW ONE Stop: 06/12/24 07:26 Last Admin: 06/12/24 07:36 Dose: 100 mg Documented By: MIKE Vital Signs Vital signs: Vital Signs - 8 hr 06/12/24 09:30 06/12/24 09:31 06/12/24 09:31 Pulse Rate 39 L 39 L Respiratory Rate Blood Pressure 197/78 H Pulse Oximetry 93 92 06/12/24 10:00 06/12/24 10:00 06/12/24 10:04 Pulse Rate 40 L 39 L Respiratory Rate Blood Pressure 189/136 H Pulse Oximetry 91 91 06/12/24 10:04 06/12/24 10:30 06/12/24 10:31 Pulse Rate 39 L Respiratory Rate 24 Blood Pressure 213/85 H 202/81 H Pulse Oximetry 94 06/12/24 10:31 06/12/24 11:00 06/12/24 11:01 Pulse Rate 39 L 40 L Respiratory Rate 23 Blood Pressure 210/86 H Pulse Oximetry 94 93 06/12/24 11:01 06/12/24 11:30 06/12/24 11:31 Pulse Rate 40 L 41 L 41 L Respiratory Rate 24 Blood Pressure Pulse Oximetry 94 94 94 06/12/24 11:31 06/12/24 12:00 06/12/24 12:04 Pulse Rate 40 L Respiratory Rate Blood Pressure 218/86 H 222/86 H Pulse Oximetry 06/12/24 12:04 06/12/24 12:30 06/12/24 12:31 Pulse Rate 40 L 41 L Respiratory Rate 25 H 25 H Blood Pressure 207/85 H Pulse Oximetry 94 93 06/12/24 12:31 06/12/24 13:00 06/12/24 13:01 Pulse Rate 41 L 41 L Respiratory Rate 26 H 24 Blood Pressure 198/82 H Pulse Oximetry 93 92 06/12/24 13:01 06/12/24 13:30 06/12/24 13:31 Pulse Rate 41 L 41 L Respiratory Rate 23 23 Blood Pressure 208/85 H Pulse Oximetry 92 92 06/12/24 13:31 06/12/24 14:00 06/12/24 14:01 Pulse Rate 41 L 41 L Respiratory Rate 22 24 Blood Pressure 196/78 H Pulse Oximetry 92 93 06/12/24 14:01 06/12/24 14:30 06/12/24 14:31 Pulse Rate 41 L 41 L Respiratory Rate 22 24 Blood Pressure 199/81 H Pulse Oximetry 93 92 06/12/24 14:31 06/12/24 15:00 06/12/24 15:01 Pulse Rate 41 L 41 L 41 L Respiratory Rate 22 32 H 36 H Blood Pressure Pulse Oximetry 92 94 93 06/12/24 15:01 06/12/24 15:30 06/12/24 15:31 Pulse Rate 41 L 41 L Respiratory Rate 23 25 H Blood Pressure 204/84 H Pulse Oximetry 93 93 06/12/24 15:31 06/12/24 16:00 06/12/24 16:01 Pulse Rate 42 L Respiratory Rate 25 H Blood Pressure 197/81 H 204/83 H Pulse Oximetry 94 06/12/24 16:01 Pulse Rate 42 L Respiratory Rate 25 H Blood Pressure Pulse Oximetry 94 Medical Decision Making Lab Data 06/12/24 07:00 06/12/24 07:00 Labs: Lab Results 06/12/24 Range/Units 07:00 WBC 10.5 (4.5-11.0) X10^3/uL RBC 3.63 L (4.0-5.2) X10^6/uL Hgb 11.6 L (12.0-16.0) g/dL Hct 34.2 L (36-46) % MCV 94.4 (80-100) fL MCH 31.9 (26-34) PG MCHC 33.8 (30-36) % RDW 13.3 (11.6-14.8) % Plt Count 195 (150-400) X10^3/uL Neut % (Auto) 72.5 (50-75) % Lymph % (Auto) 16.4 L (25-40) % [place] % (Auto) 8.8 (3-14) % Eos % (Auto) 1.5 L (2-4) % Baso % (Auto) 0.8 (0-2) % Neut # (Auto) 7600 H (7965-1040) /uL Lymph # (Auto) 1700 (0984-6030) /uL [place] # (Auto) 900 (0-900) /uL Eos # (Auto) 200 (0-450) /uL Baso # (Auto) 100 (0-100) /uL PT 10.9 (9.4-12.5) SECONDS INR 1.0 (0.9-1.3) Sodium 135 L (137-145) mmol/L Potassium 4.5 (3.4-5.1) mmol/L Chloride 109 H (98-107) mmol/L Carbon Dioxide 19 L (22-32) mmol/L BUN 37 H (7-17) mg/dL Creatinine 1.08 H (0.52-1.04) mg/dL Estimated GFR 50 L (>60) mL/min BUN/Creatinine Ratio 34.3 H (6-22) Glucose 111 H (80-110) mg/dL Calcium 9.0 (8.4-10.2) mg/dL Total Bilirubin 0.8 (0.2-1.3) mg/dL AST 130 H (14-36) IU/L ALT 268 H (<35) IU/L Alkaline Phosphatase 146 H (38-126) U/L Total Creatine Kinase 51 (30-135) U/L Troponin I < 0.012 (0.01-0.034) ng/mL NT-Pro-B Natriuret Pep 8430 H (<450) pg/mL Total Protein 6.5 (6.3-8.2) g/dL Albumin 3.9 (3.5-5.0) g/dL Globulin 2.6 (1.7-4.1) g/dL Albumin/Globulin Ratio 1.5 (1.0-2.8) MDM Narrative Medical decision making narrative: CC: Exertional dyspnea Complicating co-morbidities: Hypertension Data collected from: patient, medics Social determinants of health that may influence the patients condition: Patient still is independently Medical records reviewed: No significant complications beyond hypertension Differential considered: Acute coronary syndrome, symptomatic bradycardia, viral syndrome, pleural effusion Exam documented above, pertinent findings include: Exam is remarkably benign Lab Test results independently reviewed as above. Pertinent findings: CBC is notable for mild anemia at 11.6 and 34.2. No leukocytosis, normal platelets Chemistries show creatinine of 1.08 with a GFR of 50. Potassium appropriate at 4.5. Increased to AST and ALT at 1:30 a.m. and 268 respectively. Alk-phos slightly elevated at 146 which is lower than previously. Bilirubin is normal Troponin is undetected ProBNP is elevated at 8430 Independently reviewed EKG: EKG shows heart rate at 40 with every other P wave not conducted. TN interval is constant in the conducted beats. No ischemic changes Imaging studies independently reviewed: No significant part cardiomegaly or cephalization. Increased findings in the right lower lobe very similar to EKG in 2019. At that time she had a right lower lobe pneumonia that required hospitalization, question atelectasis, recurrent pneumonia, scarring. Consultations: [address] Azevedo, cardiology. 935 confirm that Mike does not have anybody that can place a pacemaker until June 17. We will begin looking for alternative facilities No immediate beds available at [facility] in [place], [place] in [place]. Did talk with [facility] at 10:40 a.m.. May have space available 11am discussed with Dr Vallecillo, cardiology at [facility]. Will accept pt. Need to talk with hospitalist. 250pm hospitalist, Dr Pope Treatments: Home dose of losartan given 40 mg of IV Lasix, almost a L of urine output over the ensuing 4 hours Discussion: Remarkably healthy 83-year-old woman with a history of hypertension notes bradycardia for the last 4 days appears to be in a second-degree type 2 block with 2-1 conduction in the 38-43 range. Blood pressure remains elevated which does seem close to her baseline. She is showing new signs of congestive heart failure, no evidence of acute coronary syndrome. Likely will need a pacemaker, have spoken with physicians at [facility] and patient will be admitted to their telemetry unit for further evaluation and consider a pacemaker if her rhythm does not change. Her last dose of 25 mg of atenolol was the morning of 06/11 Discharge Plan Departure Patient Disposition: [facility] Clinical Impression: Heart block AV second degree, Symptomatic bradycardia, Exertional dyspnea Congestive heart failure Qualifiers: Heart failure type: unspecified Heart failure chronicity: acute Qualified Code(s): I50.9 - Heart failure, unspecified Prescriptions: No Action Restore 5 ml PO QAC [BUILD BONE] 4 cap PO QDAY Qty: 0 cholecalciferol (vitamin D3) 2,000 unit capsule 2,000 unit PO DAILY omega-3 fatty acids [Fish Oil Concentrate] 1,000 mg capsule 1,000 mg PO DAILY Multivitamin Gummies See Rx Instructions .ROUTE .COMPLEX Patient Comments: 2 gummies PO QDAY Rx Instructions: 2 gummies PO QDAY albuterol sulfate 90 mcg/actuation HFA aerosol inhaler 2 puff INHALATION Q6-8H Qty: 18 1RF Rx Instructions: DISPENSE WITH SPACER Poison Lyndsay (#RHUS TOX) Sublingual PRN Qty: 0 atenolol 25 mg tablet 25 mg PO BID Qty: 180 1RF felodipine 10 mg tablet extended release 24 hr 10 mg PO QDAY Qty: 90 3RF losartan 50 mg tablet 100 mg PO QDAY Referrals: Raquel Torres PA-C [[facility]] -
[2024-06-12 07:19] LABS: Prothrombin Time 10.9 SECONDS (9.4-12.5)
[2024-06-12 07:35] LABS: Add Manual Diff / Slide Review NO; Basophils Absolute Auto 100 /uL (0-100); Basophils Percent Auto 0.8 % (0-2); Eosinophils Absolute Auto 200 /uL (0-450); Eosinophils Percent Auto 1.5 % (2-4); Hematocrit 34.2 % (36-46); Hemoglobin 11.6 g/dL (12.0-16.0); Lymphocytes Absolute Auto 1700 /uL (1100-4500); Lymphocytes Percent Auto 16.4 % (25-40); Mean Corpuscular HGB Conc 33.8 % (30-36); Mean Corpuscular Hemoglobin 31.9 PG (26-34); Mean Corpuscular Volume 94.4 fL (80-100); Monocytes Absolute Auto 900 /uL (0-900); Monocytes Percent Auto 8.8 % (3-14); Neutrophils Absolute Auto 7600 /uL (1500-7000); Neutrophils Percent Auto 72.5 % (50-75); Platelet Count 195 X10^3/uL (150-400); Red Blood Cell Count 3.63 X10^6/uL (4.0-5.2); Red Cell Distribution Width 13.3 % (11.6-14.8); White Blood Cell Count 10.5 X10^3/uL (4.5-11.0)
[2024-06-12] MEDS: LOSARTAN 50 MG TABLET 100 MG PO (07:36)
[2024-06-12 07:43] LABS: Creatine Kinase 51 U/L (30-135)
[2024-06-12 07:46] LABS: Alanine Aminotransferase 268 IU/L (<35); Albumin 3.9 g/dL (3.5-5.0); Albumin Globulin Ratio 1.5 (1.0-2.8); Alkaline Phosphatase 146 U/L (38-126); Aspartate Aminotransferase 130 IU/L (14-36); BUN Creatinine Ratio 34.3 (6-22); Bilirubin Total 0.8 mg/dL (0.2-1.3); Blood Urea Nitrogen 37 mg/dL (7-17); Carbon Dioxide 19 mmol/L (22-32); Chloride 109 mmol/L (98-107); Estimated Glomerular Filt Rate 50 mL/min (>60); Globulin 2.6 g/dL (1.7-4.1); Glucose 111 mg/dL (80-110); HEMOLYSIS 46 (0-50); Potassium 4.5 mmol/L (3.4-5.1); Sodium 135 mmol/L (137-145); Total Protein 6.5 g/dL (6.3-8.2)
[2024-06-12 07:54] LABS: NT-proBNP (BNP-Adult 18+) 8430 pg/mL (<450); Troponin I < 0.012 ng/mL (0.01-0.034)
[2024-06-12] MEDS: FUROSEMIDE 40 MG/4 ML VIAL IV (08:26)
--- NOTE | 2024-06-12 12:29 | PC.NURSE ---
Pt remains to be hypertensive with SBP >200. Dr. Wayne updated, no orders at this time.
--- NOTE | 2024-06-12 17:51 | PC.NURSE ---
Attempted to call family about transfer time and the number in the chart is no longer in service.
== END 2024-06-12 18:14 | disposition short-term general hospital (02) ==
PROVIDERS: Emergency Medicine; Emergency Provider Emergency Medicine; PCP Student in an Organized Health Care Education/Training Program
DX: I44.1 Atrioventricular block, second degree (principal); I50.9 Heart failure, unspecified; I11.0 Hypertensive heart disease with heart failure; R00.1 Bradycardia, unspecified; R06.09 Other forms of dyspnea
CPT/HCPCS: 36415; 71045; 80053; 82550; 83880; 84484; 85025; 85610; 93005; 96374; 99284; 99285; J1940

== ENCOUNTER 2025-01-24 15:18 | Emergency (ER) | payer MEDICARE, OTHER, SELFPAY ==
[2018-09-11 14:04] VITALS: PULSE 94; RESP 16; O2SAT 96
[2025-01-24] VITALS (7 sets, daily range): BP systolic 142–169; BP diastolic 64–74; PULSE 60–73; RESP 15–22; TEMP 36.6; O2SAT 97–100; BMI 23.3
--- NOTE | 2025-01-24 16:35 | EKG_ITS ---
[address] [address] Test Date: 2025-01-24 Pat Name: Ludmila Medina Department: [facility] Room: Gender: Female Corporate Legal Intern: ELTON : 1940 Requested By: Order Number: [id number] Reading MD: Shaun Downey Measurements Intervals [place] Rate: 60 P: NE: 196 QRS: 90 QRSD: 152 T: 83 QT: 448 QTc: 448 Interpretive Statements AV dual-paced rhythm Electronically Signed On 01-25-2025 10:26:31 PDT by Shaun Downey
--- NOTE | 2025-01-24 16:35 | DI.RAD.S_ITS ---
PROCEDURE: XR CHEST 1V INDICATIONS: Chest Pain TECHNIQUE: One view of the chest was acquired. COMPARISON: [facility], CR, XR CHEST 1V, 06/12/2024, 7:01. [facility], CR, XR CHEST 1V, 09/02/2018, 21:47. FINDINGS AND IMPRESSION: Left chest wall pulse generator with dual-chamber electrode leads. Aortic calcifications. Normal heart size. No dense airspace disease or pleural effusion on this single view study. Degenerative osseous changes. Dictated by: Vj Alejo M.D. on 01/24/2025 at 17:31 Approved by: Vj Alejo M.D. on 01/24/2025 at 17:31
--- NOTE | 2025-01-24 16:49 | ED.RECABL ---
HPI - Recheck/Abnormal Lab/Rx <Vincenzo Meade, DO - Last Filed: 01/27/25 13:13> General Chief Complaint: Recheck/Abnormal Lab/Rx Stated Complaint: sent from for high potassium Time Seen by Provider: 01/24/25 16:46 Source: patient Mode of arrival: Family Vehicle Related Data Home Medications ?Medication ?Instructions ?Recorded ?Confirmed Poison Lyndsay (#RHUS TOX) gtt sublingual PRN ##0 09/28/12 07/16/19 Restore 5 ml PO QAC 01/04/18 07/16/19 [BUILD BONE] 4 cap PO QDAY ##0 01/04/18 07/16/19 cholecalciferol (vitamin D3) 50 2,000 unit PO DAILY 05/24/18 07/16/19 mcg (2,000 unit) capsule Multivitamin Gummies See Rx Instructions .Route .COMPLEX 09/18/18 07/16/19 omega-3 fatty acids 1,000 mg 1,000 mg PO DAILY 09/18/18 07/16/19 capsule (Fish Oil Concentrate) losartan 50 mg tablet 100 mg PO QDAY 06/12/24 01/24/25 apixaban 2.5 mg tablet (Eliquis) 2.5 mg PO BID 01/24/25 01/24/25 carvedilol 12.5 mg tablet 12.5 mg PO BID 01/24/25 01/24/25 spironolactone 25 mg tablet 25 mg PO DAILY 01/24/25 01/24/25 Previous Rx's ?Medication ?Instructions ?Recorded albuterol sulfate 90 mcg/actuation 2 puff inhalation Q6-8H #18 grams 09/18/18 aerosol inhaler felodipine 10 mg tablet,extended 10 mg PO QDAY #90 tabs 07/16/19 release 24 hr atenolol 25 mg tablet 25 mg PO BID #180 tabs 09/25/19 furosemide 20 mg tablet 20 mg PO DAILY #5 tabs 01/24/25 Allergies Allergy/AdvReac Type Severity Reaction Status Date / Time Sulfa (Sulfonamide Allergy Mild RASH Verified 01/24/25 16:31 Antibiotics) hydrocodone AdvReac Intermediate Irritability, Verified 01/24/25 16:31 aggressive behavior terazosin AdvReac Intermediate DIZZY, Verified 01/24/25 16:31 PALPITATIONS RONALD Inhibitors AdvReac Mild COUGH Verified 01/24/25 16:31 amlodipine AdvReac Mild EDEMA Verified 01/24/25 16:31 hydrochlorothiazide AdvReac Mild N/V/D, Verified 01/24/25 16:31 PHOTO DERM NSAIDS (Non-Steroidal AdvReac Mild N/V Verified 01/24/25 16:31 Anti-Inflamma risedronate sodium AdvReac Mild EDEMA/TACHY Verified 01/24/25 16:31 Albuterol inhaler AdvReac Intermediate itchy red Uncoded 01/24/25 16:31 spots on arms and legs <Odilon Martin MD - Last Filed: 01/25/25 00:00> History of Present Illness HPI narrative: 84-year-old female patient with a history of hypertension, fibromyalgia, Crohn disease, cholelithiasis who presents with abnormal blood work from her doctor's office. She was told her potassium was too high. No symptoms. Review of Systems <Odilon Martin MD - Last Filed: 01/25/25 00:00> Review of Systems ROS Unobtainable: All systems reviewed & are unremarkable except as noted in HPI and below Patient History <Vincenzo Meade DO - Last Filed: 01/27/25 13:13> Medical History (Updated 01/24/25 @ 22:05 by Odilon Martin MD) Fibromyalgia Hypertension Crohns disease Social History household members: spouse Smoking Status: Never smoker second hand exposure: No alcohol intake: current substance use type: does not use Smoking Status: Never smoker Exam <Vincenzo Meade DO - Last Filed: 01/27/25 13:13> Initial Vital Signs Initial Vital Signs: Vital Signs Temperature 97.8 F 01/24/25 16:31 Pulse Rate 73 01/24/25 16:31 Respiratory Rate 18 01/24/25 16:31 Blood Pressure 162/72 H 01/24/25 16:31 Pulse Oximetry 100 01/24/25 16:31 Oxygen Delivery Method Room Air 01/24/25 16:31 <Odilon Martin MD - Last Filed: 01/25/25 00:00> Narrative Exam Narrative: General: Alert and conversant. No distress. Appears well nourished and well hydrated Craniofacial: No evidence of trauma. Nontender and no swelling. Eyes: PERRLA EOMI conjunctiva clear Lungs: Clear to auscultation with good air movement. No wheezing, rales or rhonchi. No respiratory distress Cardiac: Regular rate and rhythm with no appreciable murmur or gallop Abdomen: Soft, nontender with no distention or masses. Normal bowel sounds. No rebound or guarding Neuro: Alert and oriented. Cranial nerves, motor, sensory and cerebellar all grossly intact. No focal deficit Skin: Warm and normal color. No rashes Psychological: Normal affect and interaction. No evidence of delusion or psychosis. Normal mood. Initial Vital Signs Initial Vital Signs: Vital Signs Temperature 97.8 F 01/24/25 16:31 Pulse Rate 73 01/24/25 16:31 Respiratory Rate 18 01/24/25 16:31 Blood Pressure 162/72 H 01/24/25 16:31 Pulse Oximetry 100 01/24/25 16:31 Oxygen Delivery Method Room Air 01/24/25 16:31 Course <Vincenzo Meade, - Last Filed: 01/27/25 13:13> Orders Ordered: ED Orders 01/24/25 16:35 XR chest 1V Stat EKG-12 Lead Stat 01/24/25 16:50 Complete Blood Count AUTO DIFF Stat Comprehensive Metabolic Panel Stat Lipase Stat Magnesium Stat NT-proBNP (BNP-Adult 18+) Stat PTT Partial Thromboplastin Sudheer Stat Prothrombin Time INR Stat Troponin & CK Cardiac Panel Stat Vital Signs Vital signs: Vital Signs - 8 hr 01/24/25 16:31 01/24/25 19:00 01/24/25 19:01 Temperature 97.8 F Pulse Rate 73 61 60 Respiratory Rate 18 22 19 Blood Pressure 162/72 H Pulse Oximetry 100 99 99 Oxygen Delivery Method Room Air 01/24/25 19:01 01/24/25 19:26 01/24/25 19:26 Temperature Pulse Rate 63 Respiratory Rate 22 Blood Pressure 160/68 H 149/69 H Pulse Oximetry 98 Oxygen Delivery Method 01/24/25 19:30 01/24/25 19:30 01/24/25 20:00 Temperature Pulse Rate 62 Respiratory Rate 21 Blood Pressure 148/64 H 142/66 H Pulse Oximetry 97 Oxygen Delivery Method 01/24/25 20:00 01/24/25 22:40 Temperature Pulse Rate 61 63 Respiratory Rate 21 15 Blood Pressure 169/74 H Pulse Oximetry 97 98 Oxygen Delivery Method Room Air <Odilon Martin MD - Last Filed: 01/25/25 00:00> Orders Ordered: ED Orders 01/24/25 16:35 XR chest 1V Stat EKG-12 Lead Stat 01/24/25 16:50 Complete Blood Count AUTO DIFF Stat Comprehensive Metabolic Panel Stat Lipase Stat Magnesium Stat NT-proBNP (BNP-Adult 18+) Stat PTT Partial Thromboplastin Sudheer Stat Prothrombin Time INR Stat Troponin & CK Cardiac Panel Stat Vital Signs Vital signs: Vital Signs - 8 hr 01/24/25 16:31 01/24/25 19:00 01/24/25 19:01 Temperature 97.8 F Pulse Rate 73 61 60 Respiratory Rate 18 22 19 Blood Pressure 162/72 H Pulse Oximetry 100 99 99 Oxygen Delivery Method Room Air 01/24/25 19:01 01/24/25 19:26 01/24/25 19:26 Temperature Pulse Rate 63 Respiratory Rate 22 Blood Pressure 160/68 H 149/69 H Pulse Oximetry 98 Oxygen Delivery Method 01/24/25 19:30 01/24/25 19:30 01/24/25 20:00 Temperature Pulse Rate 62 Respiratory Rate 21 Blood Pressure 148/64 H 142/66 H Pulse Oximetry 97 Oxygen Delivery Method 01/24/25 20:00 01/24/25 22:40 Temperature Pulse Rate 61 63 Respiratory Rate 21 15 Blood Pressure 169/74 H Pulse Oximetry 97 98 Oxygen Delivery Method Room Air MDM - Recheck/Abnormal Lab/Rx <Vincenzo Meade DO - Last Filed: 01/27/25 13:13> Lab Data 01/24/25 16:50 01/24/25 16:50 Labs: Lab Results 01/24/25 Range/Units 16:50 WBC 7.1 (4.5-11.0) X10^3/uL RBC 3.85 L (4.0-5.2) X10^6/uL Hgb 12.3 (12.0-16.0) g/dL Hct 35.5 L (36-46) % MCV 92.1 (80-100) fL MCH 32.0 (26-34) PG MCHC 34.8 (30-36) % RDW 13.6 (11.6-14.8) % Plt Count 260 (150-400) X10^3/uL Neut % (Auto) 63.1 (50-75) % Lymph % (Auto) 24.2 L (25-40) % Gem % (Auto) 8.9 (3-14) % Eos % (Auto) 2.4 (2-4) % Baso % (Auto) 1.4 (0-2) % Neut # (Auto) 4500 (8804-8188) /uL Lymph # (Auto) 1700 (4171-9343) /uL Gem # (Auto) 600 (0-900) /uL Eos # (Auto) 200 (0-450) /uL Baso # (Auto) 100 (0-100) /uL PT 12.2 (9.4-12.5) SECONDS INR 1.1 (0.9-1.3) APTT 33 (25.1-36.5) SECONDS Sodium 129 L (137-145) mmol/L Potassium 5.6 H (3.4-5.1) mmol/L Chloride 96 L (98-107) mmol/L Carbon Dioxide 24 (22-32) mmol/L BUN 26 H (7-17) mg/dL Creatinine 1.13 H (0.52-1.04) mg/dL Estimated GFR 47 L (>60) mL/min BUN/Creatinine Ratio 23.0 H (6-22) Glucose 106 H (70-99) mg/dL Calcium 9.9 (8.4-10.2) mg/dL Magnesium 1.8 (1.6-2.3) mg/dL Total Bilirubin 0.5 (0.2-1.3) mg/dL AST 34 (14-36) IU/L ALT 21 (<35) IU/L Alkaline Phosphatase 98 (38-126) U/L Total Creatine Kinase 33 (30-135) U/L Troponin I < 0.012 (0.01-0.034) ng/mL NT-Pro-B Natriuret Pep 304 (<450) pg/mL Total Protein 7.9 (6.3-8.2) g/dL Albumin 4.6 (3.5-5.0) g/dL Globulin 3.3 (1.7-4.1) g/dL Albumin/Globulin Ratio 1.4 (1.0-2.8) Lipase 112 (23-300) U/L <Odilon Martin MD - Last Filed: 01/25/25 00:00> Lab Data Labs: Lab Results 01/24/25 Range/Units 16:50 WBC 7.1 (4.5-11.0) X10^3/uL RBC 3.85 L (4.0-5.2) X10^6/uL Hgb 12.3 (12.0-16.0) g/dL Hct 35.5 L (36-46) % MCV 92.1 (80-100) fL MCH 32.0 (26-34) PG MCHC 34.8 (30-36) % RDW 13.6 (11.6-14.8) % Plt Count 260 (150-400) X10^3/uL Neut % (Auto) 63.1 (50-75) % Lymph % (Auto) 24.2 L (25-40) % Gem % (Auto) 8.9 (3-14) % Eos % (Auto) 2.4 (2-4) % Baso % (Auto) 1.4 (0-2) % Neut # (Auto) 4500 (4814-1506) /uL Lymph # (Auto) 1700 (7283-2771) /uL Gem # (Auto) 600 (0-900) /uL Eos # (Auto) 200 (0-450) /uL Baso # (Auto) 100 (0-100) /uL PT 12.2 (9.4-12.5) SECONDS INR 1.1 (0.9-1.3) APTT 33 (25.1-36.5) SECONDS Sodium 129 L (137-145) mmol/L Potassium 5.6 H (3.4-5.1) mmol/L Chloride 96 L (98-107) mmol/L Carbon Dioxide 24 (22-32) mmol/L BUN 26 H (7-17) mg/dL Creatinine 1.13 H (0.52-1.04) mg/dL Estimated GFR 47 L (>60) mL/min BUN/Creatinine Ratio 23.0 H (6-22) Glucose 106 H (70-99) mg/dL Calcium 9.9 (8.4-10.2) mg/dL Magnesium 1.8 (1.6-2.3) mg/dL Total Bilirubin 0.5 (0.2-1.3) mg/dL AST 34 (14-36) IU/L ALT 21 (<35) IU/L Alkaline Phosphatase 98 (38-126) U/L Total Creatine Kinase 33 (30-135) U/L Troponin I < 0.012 (0.01-0.034) ng/mL NT-Pro-B Natriuret Pep 304 (<450) pg/mL Total Protein 7.9 (6.3-8.2) g/dL Albumin 4.6 (3.5-5.0) g/dL Globulin 3.3 (1.7-4.1) g/dL Albumin/Globulin Ratio 1.4 (1.0-2.8) Lipase 112 (23-300) U/L ECG Data Attestation: I personally reviewed and interpreted this ECG as follows: (AV dual paced rhythm. Otherwise no abnormalities) MDM Narrative Medical decision making narrative: Patient has mild to modest elevation of potassium at 5.7 which is asymptomatic. No EKG changes and labs otherwise unremarkable. She does have mild chronic renal compromise and she was put on spironolactone 3 months ago which probably explains her lab value. This is not emergent and meets the category of gradual lowering potassium. Plan will be discontinue spironolactone and start furosemide for just 5 days. Follow up with primary care and/or Cardiology regarding recheck on potassium within the next 5 days. Return to the ER if worse. Discharge Plan Departure Patient Disposition: Home Clinical Impression: Hyperkalemia Instructions: Hyperkalemia Activity Restrictions/Additional Instructions: [id number] hyperkalemia which is not emergent. Probably chronic. Probably related to spironolactone which was started 3 months ago Plan: Discontinue spironolactone for now at least temporarily. New prescription for a small dose of furosemide for 5 days. Continue to take good hydration. Follow up with your providers within the next 5 days to recheck potassium. Return to the ER if worse Prescriptions: New furosemide 20 mg tablet 20 mg PO DAILY Qty: 5 0RF No Action Restore 5 ml PO QAC [BUILD BONE] 4 cap PO QDAY Qty: 0 cholecalciferol (vitamin D3) 2,000 unit capsule 2,000 unit PO DAILY omega-3 fatty acids [Fish Oil Concentrate] 1,000 mg capsule 1,000 mg PO DAILY Multivitamin Gummies See Rx Instructions .ROUTE .COMPLEX Patient Comments: 2 gummies PO QDAY Rx Instructions: 2 gummies PO QDAY albuterol sulfate 90 mcg/actuation HFA aerosol inhaler 2 puff INHALATION Q6-8H Qty: 18 1RF Rx Instructions: DISPENSE WITH SPACER Poison Lyndsay (#RHUS TOX) Sublingual PRN Qty: 0 atenolol 25 mg tablet 25 mg PO BID Qty: 180 1RF felodipine 10 mg tablet extended release 24 hr 10 mg PO QDAY Qty: 90 3RF losartan 50 mg tablet 100 mg PO QDAY carvedilol 12.5 mg tablet 12.5 mg PO BID spironolactone 25 mg tablet 25 mg PO DAILY Eliquis 2.5 mg tablet 2.5 mg PO BID Referrals: Fransisco Escalante PA-C [Primary Care Provider, Medical] Stand Alone Forms: Patient Portal/API
[2025-01-24 17:00] LABS: Add Manual Diff / Slide Review NO; Hematocrit 35.5 % (36-46); Hemoglobin 12.3 g/dL (12.0-16.0); Lymphocytes Absolute Auto 1700 /uL (1100-4500); Mean Corpuscular HGB Conc 34.8 % (30-36); Mean Corpuscular Hemoglobin 32.0 PG (26-34); Mean Corpuscular Volume 92.1 fL (80-100); Platelet Count 260 X10^3/uL (150-400)
[2025-01-24 17:10] LABS: INR 1.1 (0.9-1.3); Prothrombin Time 12.2 SECONDS (9.4-12.5)
[2025-01-24 17:13] LABS: PTT Partial Thromboplastin Tim 33 SECONDS (25.1-36.5)
[2025-01-24 18:07] LABS: Alanine Aminotransferase 21 IU/L (<35); Albumin 4.6 g/dL (3.5-5.0); Albumin Globulin Ratio 1.4 (1.0-2.8); Alkaline Phosphatase 98 U/L (38-126); Blood Urea Nitrogen 26 mg/dL (7-17); Calcium 9.9 mg/dL (8.4-10.2); Carbon Dioxide 24 mmol/L (22-32); Chloride 96 mmol/L (98-107); Creatine Kinase 33 U/L (30-135); Estimated Glomerular Filt Rate 47 mL/min (>60); Globulin 3.3 g/dL (1.7-4.1); Glucose 106 mg/dL (70-99); HEMOLYSIS < 15 (0-50); Lipase 112 U/L (23-300); Magnesium 1.8 mg/dL (1.6-2.3); Sodium 129 mmol/L (137-145); Total Protein 7.9 g/dL (6.3-8.2)
[2025-01-24 18:10] LABS: Potassium 5.6 mmol/L (3.4-5.1)
[2025-01-24 18:17] LABS: NT-proBNP (BNP-Adult 18+) 304 pg/mL (<450); Troponin I < 0.012 ng/mL (0.01-0.034)
--- NOTE | 2025-01-24 22:36 | PC.NURSE ---
Lasix prescription was phoned in to [facility] per pt request.
== END 2025-01-24 22:40 | disposition home or self-care (01) ==
PROVIDERS: Family Medicine; Emergency Provider Emergency Medicine; PCP Student in an Organized Health Care Education/Training Program
DX: E87.5 Hyperkalemia (principal)
CPT/HCPCS: 71045; 80053; 82550; 83690; 83735; 83880; 84484; 85025; 85610; 85730; 93005; 99283; 99284